=== PATIENT | male | born 1965 | race Caucasian/White ===

== ENCOUNTER 2019-08-12 03:14 | Emergency (ER) | payer BC ==
[2019-08-12] MEDS ORDERED: Sodium Chloride 0.9% 10 ML Syringe FLUSH PRN (03:33)
[2019-08-12] MEDS ORDERED: Aspirin 81 MG Tab.Chew PO ONE (03:33)
[2019-08-12 03:55] VITALS: BP 113/77; PULSE 83
--- NOTE | 2019-08-12 06:01 | EDM.PDOC ---
ED HPI GENERAL MEDICAL PROBLEM - General Chief Complaint: Respiratory Problem Stated Complaint: SOB FEELS LIKE NOT GETTING OXYGEN Time Seen by Provider: 08/12/19 03:21 Source of Information: Reports: Patient History Limitations: Reports: No Limitations - History of Present Illness INITIAL COMMENTS - FREE TEXT/NARRATIVE: The patient presents with shortness of breath. He also has some soreness in his left upper chest. This has been going on for a couple of days. He also has been having more heart burn lately. He denies fever, chills, cough, congestion, runny nose, swelling or pain in his legs. He has no history of heart problems. He has no history of hypertension. He does have diabetes and hypercholesterolemia. He does not smoke. He has no history of DVT or PE. Onset: Gradual Duration: Day(s): Location: Reports: Chest Quality: Reports: Other (soreness) Severity: Mild Improves with: Reports: None Worsens with: Reports: None Associated Symptoms: Reports: Chest Pain, Shortness of Breath. Denies: Cough, Fever/Chills, Headaches, Nausea/Vomiting - Related Data Allergies Allergy/AdvReac Type Severity Reaction Status Date / Time No Known Allergies Allergy Verified 08/12/19 03:43 Home Meds: Home Meds metFORMIN [Glucophage XR] 1,000 mg PO BID 07/27/16 [History] Aspirin 1 tab PO DAILY 05/04/18 [History] atorvaSTATin [Lipitor] 20 mg PO BEDTIME 05/04/18 [History] Clobetasol [Clobetasol 0.05%] 1 applic TOP BID 05/05/18 [History] Empagliflozin [Jardiance] 25 mg PO DAILY #30 tablet 05/06/18 [Rx] Lisinopril 20 mg PO DAILY #0 05/10/18 [Rx] Past Medical History Cardiovascular History: Reports: High Cholesterol, Hypertension Respiratory History: Reports: Sleep Apnea Other Respiratory History: Resolved with weight loss Musculoskeletal History: Reports: Arthritis, Other (See Below) Other Musculoskeletal History: right foot surgery Neurological History: Reports: Neuropathy, Diabetic, Neuropathy, Peripheral Endocrine/Metabolic History: Reports: Diabetes, Type II, Obesity/BMI 30+ Dermatologic History: Reports: Psoriasis - Infectious Disease History Infectious Disease History: Reports: Chicken Pox - Past Surgical History Respiratory Surgical History: Reports: None Endocrine Surgical History: Reports: None Social & Family History - Family History Family Medical History: Noncontributory Cardiac: Reports: Hypertension - Tobacco Use Smoking Status *Q: Never Smoker - Caffeine Use Caffeine Use: Reports: Coffee - Recreational Drug Use Recreational Drug Use: No - Living Situation & Occupation Living situation: Reports: , with Spouse, with Family Occupation: Employed ED ROS GENERAL - Review of Systems Review Of Systems: See Below Constitutional: Reports: No Symptoms HEENT: Reports: No Symptoms Respiratory: Reports: Shortness of Breath Cardiovascular: Reports: Chest Pain Endocrine: Reports: No Symptoms GI/Abdominal: Reports: No Symptoms : Reports: No Symptoms Musculoskeletal: Reports: No Symptoms ED EXAM, GENERAL - Physical Exam Exam: See Below Exam Limited By: No Limitations General Appearance: Alert, No Apparent Distress Ears: Normal External Exam Nose: Normal Inspection Head: Atraumatic, Normocephalic Neck: Normal Inspection, Supple, Non-Tender Respiratory/Chest: No Respiratory Distress, Lungs Clear, Normal Breath Sounds Cardiovascular: Regular Rate, Rhythm, No Edema, No Murmur GI/Abdominal: Soft, Non-Tender, No Organomegaly, No Mass Back Exam: Normal Inspection Extremities: Normal Inspection Neurological: Alert, Oriented, No Motor/Sensory Deficits EKG INTERPRETATION EKG Date: 08/12/19 Time: 03:28 Rhythm: NSR Rate (Beats/Min): 84 [place]: Normal P-Wave: Present QRS: Normal ST-T: Normal QT: Normal EKG Interpretation Comments: Q waves in the inferior leads Course - Vital Signs Last Recorded V/S: Last Vital Signs Temp 97.2 F 08/12/19 03:25 Pulse 83 08/12/19 03:25 Resp 15 08/12/19 03:25 BP 113/77 08/12/19 03:25 Pulse Ox 100 08/12/19 03:25 - Orders/Labs/Meds Orders: Active Orders 24 hr Category Date Time Status Cardiac Monitoring [RC] . DIRECTED Care 08/12/19 03:33 Active EKG Documentation Completion [RC] STAT Care 08/12/19 03:33 Active Peripheral IV Care [RC] . DIRECTED Care 08/12/19 03:33 Active Chest 2V [CR] Stat Exams 08/12/19 03:34 Taken TROPONIN I [CHEM] Stat Lab 08/12/19 05:52 Ordered Sodium Chloride 0.9% [Saline Flush] Med 08/12/19 03:33 Active 10 ml FLUSH ASDIRECTED PRN Peripheral IV Insertion Adult [OM.PC] Stat Oth 08/12/19 03:33 Ordered Medication Orders Sodium Chloride (Saline Flush) 10 ml FLUSH ASDIRECTED PRN PRN Reason: Keep Vein Open Last Admin: 08/12/19 03:50 Dose: 10 ml Labs: Laboratory Tests 08/12/19 08/12/19 08/12/19 Range/Units 03:30 03:30 03:30 WBC 10.77 H (4.23-9.07) K/mm3 RBC 4.83 (4.63-6.08) M/mm3 Hgb 14.5 D (13.7-17.5) gm/dl Hct 43.8 (40.1-51.0) % MCV 90.7 (79.0-92.2) fl MCH 30.0 (25.7-32.2) pg MCHC 33.1 (32.2-35.5) g/dl RDW Std Deviation 46.9 H (35.1-43.9) fL Plt Count 344 H D (163-337) K/mm3 MPV 8.8 L (9.4-12.3) fl Neut % (Auto) 48.1 (34.0-67.9) % Lymph % (Auto) 37.0 (21.8-53.1) % [place] % (Auto) 9.2 (5.3-12.2) % Eos % (Auto) 4.9 (0.8-7.0) Baso % (Auto) 0.8 (0.1-1.2) % Neut # (Auto) 5.18 (1.78-5.38) K/mm3 Lymph # (Auto) 3.98 H (1.32-3.57) K/mm3 [place] # (Auto) 0.99 H (0.30-0.82) K/mm3 Eos # (Auto) 0.53 (0.04-0.54) K/mm3 Baso # (Auto) 0.09 H (0.01-0.08) K/mm3 Manual Slide Review Abnormal smear D-Dimer, Quantitative 0.21 (0.19-0.50) mg/L Sodium 138 (136-145) mEq/L Potassium 4.5 (3.5-5.1) mEq/L Chloride 102 (98-107) mEq/L Carbon Dioxide 23 (21-32) mEq/L Anion Gap 17.5 H (5-15) BUN 24 H (7-18) mg/dL Creatinine 1.1 (0.7-1.3) mg/dL Est Cr Clr Drug Dosing 89.26 mL/min Estimated GFR (MDRD) > 60 (>60) mL/min BUN/Creatinine Ratio 21.8 H (14-18) Glucose 127 H (74-106) mg/dL Calcium 8.7 (8.5-10.1) mg/dL Total Bilirubin 0.2 (0.2-1.0) mg/dL AST 12 L (15-37) U/L ALT 27 (16-63) U/L Alkaline Phosphatase 75 (46-116) U/L Troponin I < 0.017 (0.00-0.056) ng/mL NT-Pro-B Natriuret Pep (0-125) pg/mL Total Protein 7.5 (6.4-8.2) g/dl Albumin 3.4 (3.4-5.0) g/dl Globulin 4.1 gm/dL Albumin/Globulin Ratio 0.8 L (1-2) 08/12/19 Range/Units 03:30 WBC (4.23-9.07) K/mm3 RBC (4.63-6.08) M/mm3 Hgb (13.7-17.5) gm/dl Hct (40.1-51.0) % MCV (79.0-92.2) fl MCH (25.7-32.2) pg MCHC (32.2-35.5) g/dl RDW Std Deviation (35.1-43.9) fL Plt Count (163-337) K/mm3 MPV (9.4-12.3) fl Neut % (Auto) (34.0-67.9) % Lymph % (Auto) (21.8-53.1) % [place] % (Auto) (5.3-12.2) % Eos % (Auto) (0.8-7.0) Baso % (Auto) (0.1-1.2) % Neut # (Auto) (1.78-5.38) K/mm3 Lymph # (Auto) (1.32-3.57) K/mm3 [place] # (Auto) (0.30-0.82) K/mm3 Eos # (Auto) (0.04-0.54) K/mm3 Baso # (Auto) (0.01-0.08) K/mm3 Manual Slide Review D-Dimer, Quantitative (0.19-0.50) mg/L Sodium (136-145) mEq/L Potassium (3.5-5.1) mEq/L Chloride (98-107) mEq/L Carbon Dioxide (21-32) mEq/L Anion Gap (5-15) BUN (7-18) mg/dL Creatinine (0.7-1.3) mg/dL Est Cr Clr Drug Dosing mL/min Estimated GFR (MDRD) (>60) mL/min BUN/Creatinine Ratio (14-18) Glucose (74-106) mg/dL Calcium (8.5-10.1) mg/dL Total Bilirubin (0.2-1.0) mg/dL AST (15-37) U/L ALT (16-63) U/L Alkaline Phosphatase (46-116) U/L Troponin I (0.00-0.056) ng/mL NT-Pro-B Natriuret Pep 25 (0-125) pg/mL Total Protein (6.4-8.2) g/dl Albumin (3.4-5.0) g/dl Globulin gm/dL Albumin/Globulin Ratio (1-2) Meds: Medications Generic Name Dose Route Start Last Admin Trade Name Freq PRN Reason Stop Dose Admin Sodium Chloride 10 ml 08/12/19 03:33 08/12/19 03:50 Saline Flush FLUSH 10 ml ASDIRECTED PRN Administration Keep Vein Open Discontinued Medications Generic Name Dose Route Start Last Admin Trade Name Freq PRN Reason Stop Dose Admin Aspirin 324 mg 08/12/19 03:33 08/12/19 03:49 Aspirin PO 08/12/19 03:34 324 mg ONETIME ONE Administration - Re-Assessments/Exams Free Text/Narrative Re-Assessment/Exam: 08/12/19 06:01 I ordered an IV saline lock, EKG, CXR, labs and aspirin. His EKG shows a NSR with no acute changes. His CXR looks good. His 08/12/19 06:02 His WBC was slightly elevated at 10.77. His D-dimer was negative. His anion gap was elevated slightly at 17.5. His glucose is 127. His troponin is negative. I have ordered a repeat troponin. Departure - Departure Time of Disposition: 06:05 Disposition: Home, Self-Care 01 Condition: Good Clinical Impression: Shortness of breath - Discharge Information *PRESCRIPTION DRUG MONITORING PROGRAM REVIEWED*: Not Applicable *COPY OF PRESCRIPTION DRUG MONITORING REPORT IN PATIENT YESICA: Not Applicable Referrals: Sophie Schulz PA-C [Primary Care Provider] - 1 Week Additional Instructions: Take pepcid 20mg daily for a couple weeks. Follow up with your doctor within a week. Please return if you are worse. Sepsis Event Note - Evaluation Sepsis Screening Result: No Definite Risk - Focused Exam Vital Signs: Vital Signs Temp Pulse Resp BP Pulse Ox 08/12/19 03:25 97.2 F 83 15 113/77 100 Date Exam was Performed: 08/12/19 Time Exam was Performed: 05:56 - My Orders Last 24 Hours: My Active Orders 08/12/19 03:33 Cardiac Monitoring [RC] . DIRECTED EKG Documentation Completion [RC] STAT Peripheral IV Care [RC] . DIRECTED Sodium Chloride 0.9% [Saline Flush] 10 ml FLUSH ASDIRECTED PRN Peripheral IV Insertion Adult [OM.PC] Stat 08/12/19 03:34 Chest 2V [CR] Stat 08/12/19 05:52 TROPONIN I [CHEM] Stat - Assessment/Plan Last 24 Hours: My Active Orders 08/12/19 03:33 Cardiac Monitoring [RC] . DIRECTED EKG Documentation Completion [RC] STAT Peripheral IV Care [RC] . DIRECTED Sodium Chloride 0.9% [Saline Flush] 10 ml FLUSH ASDIRECTED PRN Peripheral IV Insertion Adult [OM.PC] Stat 08/12/19 03:34 Chest 2V [CR] Stat 08/12/19 05:52 TROPONIN I [CHEM] Stat
--- NOTE | 2019-08-12 09:23 | CR ---
Chest: 2 views of the chest were obtained. Comparison: Previous chest x-ray of 05/08/18. Heart size and mediastinum are within normal limits. Lungs are clear with no acute parenchymal change. Bony structures appear within normal limits for the patient's age. Impression: 1. Nothing acute is appreciated on 2 view chest x-ray. Diagnostic code #1 This report was dictated in [place] Standard Time
== END 2019-08-12 06:15 | disposition home or self-care (01) ==
LOC: JD.ED 03:14
DX: R06.02 Shortness of breath (principal); R07.9 Chest pain, unspecified; E78.00 Pure hypercholesterolemia, unspecified; I10 Essential (primary) hypertension; E11.42 Type 2 diabetes mellitus with diabetic polyneuropathy; L40.9 Psoriasis, unspecified; E66.9 Obesity, unspecified; Z68.41 Body mass index [BMI] 40.0-44.9, adult; Z79.84 Long term (current) use of oral hypoglycemic drugs; Z79.899 Other long term (current) drug therapy; Z79.82 Long term (current) use of aspirin
CPT/HCPCS: 36415; 71046; 80053; 83880; 84484; 85025; 85379; 93005; 99285; A9270; 93010; 99284

== ENCOUNTER 2019-08-30 10:30 | Emergency (ER) | payer BC, OTHER ==
[2019-08-30] MEDS ORDERED: Sodium Chloride 0.9% 1,000 ML IV ONE (12:04)
[2019-08-30] MEDS ORDERED: Lactated Ringers 500 ML IV ONE (12:25)
--- NOTE | 2019-08-30 12:28 | EDM.PDOC ---
ED HPI GENERAL MEDICAL PROBLEM - General Chief Complaint: Gastrointestinal Problem Stated Complaint: POSSIBLE DEHYDRATION WITH LIGHTHEADEDNESS Time Seen by Provider: 08/30/19 12:05 Source of Information: Reports: Patient History Limitations: Reports: No Limitations - History of Present Illness INITIAL COMMENTS - FREE TEXT/NARRATIVE: Mr. Mueller is a very pleasant 54-year-old man with a past medical history significant for obesity, GERD, diabetes, and diabetic nephropathy, who now presents to the ED stating that he developed a subjective fever and chills on , 08/23/2019 or 08/24/2019. He developed watery diarrhea on 08/24/2019 or 08/25/2019. He then developed nausea, vomiting, decreased appetite, generalized fatigue, and body aches on 08/25/2019. He developed lightheadedness when upright this morning. He reports having a cough initially productive of greenish/brown sputum, now dry. He states that he has chronic sinus congestion. He denies ear or throat pain. No urinary symptoms. No abdominal pain. No prior similar symptoms. The patient states that he has been on amoxicillin for a foot ulcer since 08/22/2019. In addition, he chronically takes Coricidin sinus. Otherwise, he has not taken any [id number]-[id number] or home remedies to try to treat his more recent symptoms. Here in the ED, the patient is found to be hemodynamically stable, afebrile, saturating 99% on room air. The patient does not have a PCP. His Hyperion Developer is Dr. Jeff Wolfe. His Kiln Burner is Dr. Sam Sims. He did not receive an influenza vaccine this season, but agreed to receive one here today. Treatments MANAGER BATTERY: Reports: NSAIDS, Other (see below) Other Treatments MANAGER BATTERY: OTC ibuprofen and sinus medicine. - Related Data Allergies Allergy/AdvReac Type Severity Reaction Status Date / Time No Known Allergies Allergy Verified 09/01/19 02:37 Home Meds: Home Meds metFORMIN [Glucophage XR] 1,000 mg PO BID 07/27/16 [History] Aspirin 1 tab PO DAILY 05/04/18 [History] atorvaSTATin [Lipitor] 20 mg PO BEDTIME 05/04/18 [History] Clobetasol [Clobetasol 0.05%] 1 applic TOP BID 05/05/18 [History] Empagliflozin [Jardiance] 25 mg PO DAILY #30 tablet 05/06/18 [Rx] Lisinopril 20 mg PO DAILY #0 05/10/18 [Rx] Past Medical History Cardiovascular History: Reports: High Cholesterol, Hypertension Respiratory History: Reports: Sleep Apnea Musculoskeletal History: Reports: Arthritis Neurological History: Reports: Neuropathy, Diabetic Endocrine/Metabolic History: Reports: Diabetes, Type II, Obesity/BMI 30+ - Infectious Disease History Infectious Disease History: Reports: Chicken Pox - Past Surgical History Musculoskeletal Surgical History: Reports: Amputation (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) Social & Family History - Family History Family Medical History: Noncontributory Cardiac: Reports: Hypertension - Tobacco Use Smoking Status *Q: Never Smoker Years of Tobacco use: 14 Packs/Tins Daily: 1 Month/Year Tobacco Last Used: Quit 08/10/1998 - Caffeine Use Caffeine Use: Reports: Coffee - Alcohol Use Alcohol Use History: Yes Alcohol Use Frequency: Rarely - Recreational Drug Use Recreational Drug Use: No - Living Situation & Occupation Living situation: Reports: , with Spouse Occupation: Employed ED ROS GENERAL - Review of Systems Review Of Systems: Comprehensive ROS is negative, except as noted in HPI. ED EXAM, GENERAL - Physical Exam Exam: See Below Exam Limited By: No Limitations General Appearance: Alert, WD/WN, No Apparent Distress Eye Exam: Bilateral Eye: EOMI, Normal Inspection Ears: Normal External Exam, Normal Canal, Normal TMs, Hearing Loss (mild) Ear Exam: Bilateral Ear: Auricle Normal, Canal Normal, TM normal Nose: Normal Inspection, Normal Mucosa, No Blood Throat/Mouth: Normal Inspection, Normal Lips, Normal Teeth, Normal Gums, Normal Oropharynx, Normal Voice, No Airway Compromise Head: Atraumatic, Normocephalic Neck: Normal Inspection, Supple, Non-Tender, Full Range of Motion. No: Lymphadenopathy (L), Lymphadenopathy (R) Respiratory/Chest: No Respiratory Distress, Lungs Clear, Normal Breath Sounds, No Accessory Muscle Use. No: Decreased Breath Sounds, Crackles, Rhonchi, Wheezing, Stridor, Prolonged Expiration Cardiovascular: Normal Peripheral Pulses, Regular Rate, Rhythm, No Edema, No Gallop, No JVD, No Murmur, No Rub Peripheral Pulses: 4+: Radial (L), Radial (R) GI/Abdominal: Normal Bowel Sounds, Soft, Non-Tender, No Organomegaly, No Distention, No Abnormal Bruit, No Mass (Male) Exam: Deferred Rectal (Males) Exam: Deferred Back Exam: Normal Inspection, Full Range of Motion, NT Extremities: Normal Range of Motion, No Pedal Edema, Normal Capillary Refill, Other (Hyperpigmentation changes to bilateral legs, however, no edema at this time) Neurological: Alert, Oriented, Normal Cognition, No Motor/Sensory Deficits Psychiatric: Normal Affect Skin Exam: Warm, Dry, Intact, Normal Color, No Rash Course - Vital Signs Last Recorded V/S: Last Vital Signs Temp 37.0 C 08/30/19 14:39 Pulse 84 08/30/19 14:39 Resp 16 08/30/19 14:39 BP 160/80 H 08/30/19 14:39 Pulse Ox 97 08/30/19 14:39 Orthostatic Blood Pressure [ 127/86 Standing] Orthostatic Blood Pressure [ 127/86 Sitting] Orthostatic Blood Pressure [ 113/81 Supine] - Orders/Labs/Meds Labs: Laboratory Tests 08/30/19 08/30/19 08/30/19 Range/Units 12:07 12:46 12:46 WBC 5.67 (4.23-9.07) K/mm3 RBC 4.96 (4.63-6.08) M/mm3 Hgb 14.4 (13.7-17.5) gm/dl Hct 44.5 (40.1-51.0) % MCV 89.7 (79.0-92.2) fl MCH 29.0 (25.7-32.2) pg MCHC 32.4 (32.2-35.5) g/dl RDW Std Deviation 45.9 H (35.1-43.9) fL Plt Count 316 (163-337) K/mm3 MPV 8.4 L (9.4-12.3) fl Neut % (Auto) 65.0 (34.0-67.9) % Lymph % (Auto) 24.3 (21.8-53.1) % [place] % (Auto) 9.0 (5.3-12.2) % Eos % (Auto) 0.7 L (0.8-7.0) Baso % (Auto) 0.5 (0.1-1.2) % Neut # (Auto) 3.68 (1.78-5.38) K/mm3 Lymph # (Auto) 1.38 (1.32-3.57) K/mm3 [place] # (Auto) 0.51 (0.30-0.82) K/mm3 Eos # (Auto) 0.04 (0.04-0.54) K/mm3 Baso # (Auto) 0.03 (0.01-0.08) K/mm3 Manual Slide Review Normal smear Sodium 137 (136-145) mEq/L Potassium 4.8 (3.5-5.1) mEq/L Chloride 102 (98-107) mEq/L Carbon Dioxide 23 (21-32) mEq/L Anion Gap 16.8 H (5-15) BUN 16 (7-18) mg/dL Creatinine 1.0 (0.7-1.3) mg/dL Est Cr Clr Drug Dosing 98.18 mL/min Estimated GFR (MDRD) > 60 (>60) mL/min BUN/Creatinine Ratio 16.0 (14-18) Glucose 116 H (74-106) mg/dL POC Glucose 115 H (70-105) mg/dL Calcium 8.9 (8.5-10.1) mg/dL Magnesium (1.8-2.4) mg/dl Total Bilirubin 0.2 (0.2-1.0) mg/dL AST 36 (15-37) U/L ALT 32 (16-63) U/L Alkaline Phosphatase 84 (46-116) U/L Total Protein 8.1 (6.4-8.2) g/dl Albumin 2.9 L (3.4-5.0) g/dl Globulin 5.2 gm/dL Albumin/Globulin Ratio 0.6 L (1-2) 08/30/19 Range/Units 12:46 WBC (4.23-9.07) K/mm3 RBC (4.63-6.08) M/mm3 Hgb (13.7-17.5) gm/dl Hct (40.1-51.0) % MCV (79.0-92.2) fl MCH (25.7-32.2) pg MCHC (32.2-35.5) g/dl RDW Std Deviation (35.1-43.9) fL Plt Count (163-337) K/mm3 MPV (9.4-12.3) fl Neut % (Auto) (34.0-67.9) % Lymph % (Auto) (21.8-53.1) % [place] % (Auto) (5.3-12.2) % Eos % (Auto) (0.8-7.0) Baso % (Auto) (0.1-1.2) % Neut # (Auto) (1.78-5.38) K/mm3 Lymph # (Auto) (1.32-3.57) K/mm3 [place] # (Auto) (0.30-0.82) K/mm3 Eos # (Auto) (0.04-0.54) K/mm3 Baso # (Auto) (0.01-0.08) K/mm3 Manual Slide Review Sodium (136-145) mEq/L Potassium (3.5-5.1) mEq/L Chloride (98-107) mEq/L Carbon Dioxide (21-32) mEq/L Anion Gap (5-15) BUN (7-18) mg/dL Creatinine (0.7-1.3) mg/dL Est Cr Clr Drug Dosing mL/min Estimated GFR (MDRD) (>60) mL/min BUN/Creatinine Ratio (14-18) Glucose (74-106) mg/dL POC Glucose (70-105) mg/dL Calcium (8.5-10.1) mg/dL Magnesium 1.7 L (1.8-2.4) mg/dl Total Bilirubin (0.2-1.0) mg/dL AST (15-37) U/L ALT (16-63) U/L Alkaline Phosphatase (46-116) U/L Total Protein (6.4-8.2) g/dl Albumin (3.4-5.0) g/dl Globulin gm/dL Albumin/Globulin Ratio (1-2) Meds: Medications Discontinued Medications Generic Name Dose Route Start Last Admin Trade Name Freq PRN Reason Stop Dose Admin Sodium Chloride 1,000 mls @ 999 mls/hr 08/30/19 12:04 08/30/19 13:31 Normal Saline IV 08/30/19 13:04 Not Given ONETIME ONE Lactated Ringer's 500 mls @ 999 mls/hr 08/30/19 12:25 08/30/19 12:51 Ringers, Lactated IV 08/30/19 12:55 999 mls/hr .BOLUS ONE Administration Influenza Virus Vaccine 60 mcg 08/30/19 12:45 08/30/19 12:51 Fluzone Quad [id number] Syringe IM 08/30/19 12:46 60 mcg .ONCE ONE Administration - Re-Assessments/Exams Free Text/Narrative Re-Assessment/Exam: 08/30/19 12:26 The patient's physical exam is largely benign. He is likely suffering from a viral illness, however, we have ordered some blood work, an influenza swab, a chest x-ray, and orthostatics to evaluate. In the meantime, the patient will receive IV fluid. He declined an offer for an antiemetic. 08/30/19 12:33 The patient is not orthostatic. 08/30/19 14:05 2-view chest radiograph is read by Dr. Webster as: 1. Nothing acute is appreciated on 2-view chest x-ray. The patient CBC is unremarkable. His CMP is remarkable for an anion gap mildly elevated at 16.8, but with a bicarbonate normal at 23. His blood glucose is slightly elevated at 116, with the remainder of his CMP being unremarkable. His magnesium level is slightly depressed at 1.7. His influenza swab returned positive for influenza A. Based on the above, the patient is suffering from influenza A. 08/30/19 14:14 Test results discussed with the patient and his . As above, the patient appears to have influenza. Unfortunately, he has been symptomatic for too long to be able to receive Tamiflu. I am recommending that he take Tylenol or ibuprofen as needed for discomfort, and stay adequately hydrated. I am advising against [id number] cough or cold remedies. Departure - Departure Time of Disposition: 14:15 Disposition: Home, Self-Care 01 Condition: Good Clinical Impression: Influenza A - Discharge Information *PRESCRIPTION DRUG MONITORING PROGRAM REVIEWED*: Not Applicable *COPY OF PRESCRIPTION DRUG MONITORING REPORT IN PATIENT YESICA: Not Applicable Instructions: Influenza, Adult, [id number] Referrals: Jeff Wolfe MD [Ordering Only Provider] - Sam Sims DPM [Ordering Only Provider] - Forms: ED Department Discharge Additional Instructions: You were seen in the emergency room for chills, body aches, nausea, vomiting, diarrhea, a cough, a decreased appetite, and lightheadedness. Work-up in the ER included blood work, an influenza swab, chest x-ray, and positional blood pressure checks. Your work-up returned positive for influenza A. The remainder of your work-up was unremarkable. You are not dehydrated. As discussed, unfortunately, it is too late for you to be started on the anti- influenza medicine Tamiflu. This illness will have to run its course. We recommend that you stay adequately hydrated. Gatorade or Powerade are best. You may take [id number] Tylenol or ibuprofen as needed for body aches or discomfort. We recommend that you not take any [id number] cough or cold remedies, as they have been shown to be of no benefit, but do have side effects, such as an upset stomach. If any other problems, please do not hesitate to return to the ER. Sepsis Event Note - Evaluation Sepsis Screening Result: No Definite Risk - Focused Exam Date Exam was Performed: 09/01/19 Time Exam was Performed: 18:48
[2019-08-30] MEDS ORDERED: FLU Vacc QS2019-20(6MOS+)/PF 60 MCG/0.5 ML SYRINGE IM ONE (12:45)
--- NOTE | 2019-08-30 13:27 | CR ---
Chest: PA and lateral views of the chest were obtained. Comparison: Prior chest x-ray of 08/12/19. Heart size and mediastinum are normal. Lungs are clear with no acute parenchymal change. Bony structures are unremarkable. Impression: 1. Nothing acute is appreciated on two-view chest x-ray. Diagnostic code #1 Study was dictated in [place] Standard Time
[2019-08-30 14:43] VITALS: BP 160/80; PULSE 84
== END 2019-08-30 14:39 | disposition home or self-care (01) ==
LOC: JD.ED 10:30
DX: J10.1 Influenza due to other identified influenza virus with other respiratory manifestations (principal); E11.9 Type 2 diabetes mellitus without complications; Z79.82 Long term (current) use of aspirin
CPT/HCPCS: 36415; 71046; 80053; 82962; 83735; 85025; 87804; 90471; 90686; 96360; 99284; J7120; 99283; G0008

== ENCOUNTER 2019-09-01 02:26 | Emergency (ER) | payer OTHER, BC ==
[2019-09-01 02:37] VITALS: BP 140/87; PULSE 77
--- NOTE | 2019-09-01 04:19 | EDM.PDOC ---
ED HPI GENERAL MEDICAL PROBLEM - General Chief Complaint: Respiratory Problem Stated Complaint: SOB HAS FLU Time Seen by Provider: 09/01/19 04:17 Source of Information: Reports: Patient History Limitations: Reports: No Limitations - History of Present Illness INITIAL COMMENTS - FREE TEXT/NARRATIVE: This is a 54-year-old male. He awoke from a sleep around midnight and he noted when he woke up he was breathing but he felt like he could not breathe deep this continued and he comes to the ER for evaluation. This happened last week as well just like this and he came to the ER and they did a work-up on him that was completely normal and the never found anything. The only thing that seems to be correlated is he took some Coricidin with dextromethorphan prior to going to sleep last time and also last night. He thinks it might be the medication that is because the symptoms. Right now he is no longer suffering from any shortness of breath or feeling like he cannot breathe deep. He says he does not want a work-up and he wants to go home. He denies any fever or chills he denies any other acute symptoms no nausea vomiting, no diarrhea. - Related Data Allergies Allergy/AdvReac Type Severity Reaction Status Date / Time No Known Allergies Allergy Verified 09/01/19 02:37 Home Meds: Home Meds metFORMIN [Glucophage XR] 1,000 mg PO BID 07/27/16 [History] Aspirin 1 tab PO DAILY 05/04/18 [History] atorvaSTATin [Lipitor] 20 mg PO BEDTIME 05/04/18 [History] Clobetasol [Clobetasol 0.05%] 1 applic TOP BID 05/05/18 [History] Empagliflozin [Jardiance] 25 mg PO DAILY #30 tablet 05/06/18 [Rx] Lisinopril 20 mg PO DAILY #0 05/10/18 [Rx] Past Medical History Cardiovascular History: Reports: High Cholesterol, Hypertension Respiratory History: Reports: Sleep Apnea Other Respiratory History: Resolved with weight loss Musculoskeletal History: Reports: Arthritis, Other (See Below) Other Musculoskeletal History: right foot surgery Neurological History: Reports: Neuropathy, Diabetic, Neuropathy, Peripheral Endocrine/Metabolic History: Reports: Diabetes, Type II, Obesity/BMI 30+ Dermatologic History: Reports: Psoriasis - Infectious Disease History Infectious Disease History: Reports: Chicken Pox, Influenza - Past Surgical History Respiratory Surgical History: Reports: None Endocrine Surgical History: Reports: None Social & Family History - Family History Family Medical History: Noncontributory Cardiac: Reports: Hypertension - Tobacco Use Smoking Status *Q: Former Smoker Used Tobacco, but Quit: Yes Month/Year Tobacco Last Used: 20 years - Caffeine Use Caffeine Use: Reports: None - Recreational Drug Use Recreational Drug Use: No - Living Situation & Occupation Living situation: Reports: , with Spouse, with Family Occupation: Employed ED ROS GENERAL - Review of Systems Review Of Systems: See Below Constitutional: Denies: Fever, Chills HEENT: Reports: No Symptoms Respiratory: Reports: Shortness of Breath, Cough. Denies: Wheezing Cardiovascular: Denies: Chest Pain Endocrine: Reports: No Symptoms GI/Abdominal: Denies: Abdominal Pain : Reports: No Symptoms Musculoskeletal: Reports: No Symptoms Skin: Reports: Other (Has an infection on his right foot for which she is taking some antibiotics) Neurological: Reports: No Symptoms Psychiatric: Reports: No Symptoms Hematologic/Lymphatic: Reports: No Symptoms ED EXAM, GENERAL - Physical Exam Exam: See Below Exam Limited By: No Limitations General Appearance: Alert, WD/WN, No Apparent Distress Eye Exam: Bilateral Eye: Normal Inspection Ears: Normal External Exam Nose: Normal Inspection Throat/Mouth: Normal Inspection, Normal Lips, Normal Voice, No Airway Compromise Head: Normocephalic Neck: Supple Respiratory/Chest: No Respiratory Distress, Lungs Clear, Normal Breath Sounds Cardiovascular: Regular Rate, Rhythm, No Murmur GI/Abdominal: Other (Patient is morbidly obese) Back Exam: Full Range of Motion Extremities: Normal Inspection, Normal Range of Motion, Other (Pedal edema is noted) Neurological: Alert, Oriented Psychiatric: Normal Affect, Normal Mood Skin Exam: Warm, Dry Course - Vital Signs Last Recorded V/S: Last Vital Signs Temp 96.7 F L 09/01/19 02:33 Pulse 77 09/01/19 02:33 Resp 20 09/01/19 02:33 BP 140/87 09/01/19 02:33 Pulse Ox 100 09/01/19 02:33 - Re-Assessments/Exams Free Text/Narrative Re-Assessment/Exam: 09/01/19 04:35 Spoke to the patient regarding whether he uses a CPAP at nighttime and he does not. I am not certain what kind of episode he might have had with the shortness of breath and feeling like he could not breathe the. I encouraged him to follow-up with his family doctor this coming week especially if he continues to have episodes like this. Departure - Departure Time of Disposition: 04:17 Disposition: Home, Self-Care 01 Condition: Fair Clinical Impression: Shortness of breath, Influenza A - Discharge Information *PRESCRIPTION DRUG MONITORING PROGRAM REVIEWED*: Not Applicable *COPY OF PRESCRIPTION DRUG MONITORING REPORT IN PATIENT YESICA: Not Applicable Instructions: Shortness of Breath, Adult, [id number], Influenza, Adult, Easy- to-Read Referrals: PCP,None [Primary Care Provider] - Forms: ED Department Discharge Additional Instructions: If you continue to have episodes of shortness of breath especially at nighttime waking up feeling like you cannot breathe you might consider following up with your family doctor and have been doing some tests to see how well you are sleeping and to see whether or not your oxygen drops while you are sleeping that might cause the symptoms, continue with the last antibiotic and also drink lots of fluids take Tylenol or ibuprofen as needed for fever since the influenza you normally last 5 to 7 days before you start feeling better, return to the ER if needed Sepsis Event Note - Evaluation Sepsis Screening Result: No Definite Risk - Focused Exam Vital Signs: Vital Signs Temp Pulse Resp BP Pulse Ox 09/01/19 02:33 96.7 F L 77 20 140/87 100 Date Exam was Performed: 09/01/19 Time Exam was Performed: 04:31
== END 2019-09-01 04:36 | disposition home or self-care (01) ==
LOC: JD.ED 02:26
DX: J10.1 Influenza due to other identified influenza virus with other respiratory manifestations (principal); R06.02 Shortness of breath; I10 Essential (primary) hypertension; E11.42 Type 2 diabetes mellitus with diabetic polyneuropathy; E78.00 Pure hypercholesterolemia, unspecified; M19.90 Unspecified osteoarthritis, unspecified site; E66.01 Morbid (severe) obesity due to excess calories; Z68.41 Body mass index [BMI] 40.0-44.9, adult; Z87.891 Personal history of nicotine dependence; Z79.84 Long term (current) use of oral hypoglycemic drugs; Z79.82 Long term (current) use of aspirin; Z79.899 Other long term (current) drug therapy
CPT/HCPCS: 99282; 99284